=== PATIENT | male | born 1965 | race Hispanic/Latino ===

== ENCOUNTER 2017-05-29 19:13 | Observation (INO) | payer MEDICAID, OTHER ==
[2017-05-29 19:20] VITALS: BMI 31.4
--- NOTE | 2017-05-29 19:34 | ED PDOC ---
Arrival/HPI - General Historian: Patient, Spouse - History of Present Illness Time/Duration: Prior to Arrival Symptom Onset: Sudden Symptom Course: Improving Quality: Pressure <Emil Lezama - Last Filed: 05/29/17 21:04> <David Drake - Last Filed: 05/29/17 21:49> - General Chief Complaint: Chest Pain Time Seen by Provider: 05/29/17 19:14 - History of Present Illness Narrative History of Present Illness (Text): 05/29/17 19:30 This is a 52 year old male with PMHx newly diagnosed HTN, cardiomegaly, BPH who presents complaining of chest pain. Patient states that this began at around 6: 45 PM after dinner. Patient states that it feels as if someone is sitting on his chest. There is no radiation of pain but patient complains of numbness along the left medial arm. Patient states that at the time he experienced associated dizziness, palpitations, headache, SOB. Patient states that these symptoms have since improved. PMHx: HTN, BPH, Cardiomegaly, Pneumonia PSHx: Right arm fracture repair and surgery for glass in his right eye. Tonsillectomy. Allergies: NKDA Social: Denies tobacco, alcohol, drugs. PMD: Dr. Lowe [employer] Curer: Dr. Osorio (Emil Lezama) Past Medical History - Provider Review Nursing Documentation Reviewed: Yes - Cardiac Hx Hypertension: Yes - Psychiatric Hx Substance Use: No <Emil Lezama - Last Filed: 05/29/17 21:04> Family/Social History - Physician Review Nursing Documentation Reviewed: Yes Family/Social History: CAD/ID Smoking Status: n Hx Alcohol Use: No Hx Substance Use: No <Emil Lezama - Last Filed: 05/29/17 21:04> Allergies/Home Meds <Emil Lezama - Last Filed: 05/29/17 21:04> <David Drake - Last Filed: 05/29/17 21:49> Allergies/Adverse Reactions: Allergies No Known Allergies Allergy (Verified 05/29/17 19:24) Home Medications: Home Meds Medication Instructions Recorded Confirmed Losartan/Hydrochlorothiazide 1 tab PO DAILY 05/29/17 05/29/17 [Hyzaar 12.5 mg-100 mg] Review of Systems - Review of Systems Constitutional: Normal Eyes: Normal ENT: Normal Respiratory: SOB Cardiovascular: Chest Pain, Palpitations Gastrointestinal: Normal Genitourinary Male: Normal Musculoskeletal: Normal Skin: Normal Neurological: Headache, Dizziness Endocrine: Normal Hemo/Lymphatic: Normal Psychiatric: Normal <Emil Lezama - Last Filed: 05/29/17 21:04> Physical Exam Vital Signs Reviewed: Yes Temperature: Afebrile Blood Pressure: Hypertensive Pulse: Regular Respiratory Rate: Normal Appearance: Positive for: Comfortable Pain Distress: Mild Mental Status: Positive for: Alert and Oriented X 3 - Systems Exam Head: Present: Atraumatic, Normocephalic Pupils: Present: PERRL Extroacular Muscles: Present: EOMI Conjunctiva: Present: Normal Mouth: Present: Moist Mucous Membranes Neck: Present: Normal Range of Motion Respiratory/Chest: Present: Clear to Auscultation, Good Air Exchange. No: Accessory Muscle Use Cardiovascular: Present: Regular Rate and Rhythm, Normal S1, S2 Abdomen: Present: Normal Bowel Sounds. No: Tenderness, Distention Upper Extremity: Present: Normal Inspection, NORMAL PULSES Lower Extremity: Present: Normal Inspection, NORMAL PULSES. No: CALF TENDERNESS Neurological: Present: GCS=15, CN II-XII Intact Skin: Present: Warm, Dry, Normal Color. No: Rashes Psychiatric: Present: Alert, Oriented x 3 <Emil Lezama - Last Filed: 05/29/17 21:04> Medical Decision Making - Lab Interpretations I have reviewed the lab results: Yes - EKG Interpretation Interpreted by ED Physician: Yes Type: 12 lead EKG <Emil Lezama - Last Filed: 05/29/17 21:04> - Lab Interpretations I have reviewed the lab results: Yes - EKG Interpretation Interpreted by ED Physician: Yes Type: 12 lead EKG <David Drake - Last Filed: 05/29/17 21:49> ED Course and Treatment: 05/29/17 19:36 EKG, Cardiac Iso, CBC, CMP, Coags, Mag, Phos, Portable CXR EKG shows NSR at rate 78 but prolonged QTc at 481 ms 05/29/17 21:[address] Romero at 21:00 who agreed for admission for observation telemetry. (Emil Lezama) Impression: Pt seen and evaluated with medical secretary. Pt, whose past medical history includes hypertension, cardiomegaly, and BPH, presented for chest pain with associated dizziness, palpitations, headaches, and shortness of breath. Aware and agrees with HPI, clinical findings, plan, and management. Plan: -- EKG -- Chest X-ray -- Labs, cardiac enzymes -- Aspirin -- Reassess and disposition (David Drake) - Lab Interpretations Lab Results: 05/29/17 19:41 05/29/17 19:41 Lab Results 05/29/17 20:10: PT 12.1 H, INR 1.12 H, APTT 29.3 05/29/17 19:41: Sodium 141, Potassium 3.8, Chloride 101, Carbon Dioxide 29, Anion Gap 15, BUN 17, Creatinine 0.9, Est GFR ( Amer) > 60, Est GFR (Non- Af Amer) > 60, Random Glucose 95, Calcium 9.0, Phosphorus 3.4, Magnesium 2.1, Total Bilirubin 0.8, AST 26, ALT 49, Alkaline Phosphatase 72, Lactate Dehydrogenase 380, Total Creatine Kinase 94, Troponin I < 0.01, Total Protein 7.8, Albumin 4.6, Globulin 3.3, Albumin/Globulin Ratio 1.4 05/29/17 19:41: WBC 5.1, RBC 4.54, Hgb 14.1, Hct 40.7 L, MCV 89.6, MCH 31.1, MCHC 34.6, RDW 12.7, Plt Count 211, MPV 9.5, Gran % 51.2, Lymph % (Auto) 36.2 H , Bartholomew % (Auto) 6.5 H, Eos % (Auto) 5.5 H, Baso % (Auto) 0.6, Gran # 2.60, Lymph # 1.8, [place]w # 0.3, Eos # 0.3, Baso # 0.03 - RAD Interpretation Radiology Orders: 05/29/17 19:29 CXR [CHEST PORTABLE] [RAD] Stat - Medication Orders Current Medication Orders: Discontinued Medications Aspirin (Aspirin) 325 mg PO STAT STA Stop: 05/29/17 19:31 Last Admin: 05/29/17 19:48 Dose: 325 mg Disposition/Present on Arrival - Present on Arrival Any Indicators Present on Arrival: No History of DVT/PE: No History of Uncontrolled Diabetes: No Urinary Catheter: No History of Decub. Ulcer: No History Surgical Site Infection Following: None - Disposition Have Diagnosis and Disposition been Completed?: Yes Disposition Time: 21:00 Patient Plan: Observation, Telemetry <Emil Lezama - Last Filed: 05/29/17 21:04> <David Drake - Last Filed: 05/29/17 21:49> - Disposition Diagnosis: Chest pain Disposition: HOSPITALIZED Patient Problems: Current Active Problems Problem Status Onset Chest pain Acute Condition: STABLE
[2017-05-29 19:56] LABS: BASO # 0.03 K/mm3 (0.0-2.0); BASO % 0.6 % (0.0-3.0); EOS # 0.3 (0.0-0.7); EOS % 5.5 % (1.5-5.0); GRAN # 2.6 (1.4-6.5); GRAN % 51.2 % (50.0-68.0); HEMATOCRIT 40.7 % (42.0-52.0); LYMPH # 1.8 (1.2-3.4); LYMPH % 36.2 % (22.0-35.0); MEAN CELL VOLUME 89.6 fl (80.0-105.0); MEAN CORPUSCULAR HEMOGLOBIN 31.1 pg (25.0-35.0); MEAN CORPUSCULAR HGB CONC 34.6 g/dl (31.0-37.0); MEAN PLATELET VOLUME 9.5 fl (7.0-11.0); MONO # 0.3 (0.1-0.6); MONO % 6.5 % (1.0-6.0); RED CELL DISTRIBUTION WIDTH 12.7 % (11.5-14.5); WHITE BLOOD COUNT 5.1 10^3/ul (4.5-11.0)
[2017-05-29 20:07] LABS: ALB/GLOB RATIO 1.4 (1.1-1.8); ALKALINE PHOSPHATASE 72 U/L (38-126); ALT/SGPT 49 U/L (7-56); AST/SGOT 26 U/L (17-59); BILIRUBIN,TOTAL 0.8 mg/dL (0.2-1.3); BLOOD UREA NITROGEN 17 mg/dL (7-21); CARBON DIOXIDE 29 mmol/L (21-33); CHLORIDE 101 mmol/L (98-107); GFR AFRICAN-AMERICAN > 60; GLUCOSE,RANDOM 95 mg/dL (70-110); MAGNESIUM 2.1 mg/dL (1.7-2.2); PHOSPHOROUS 3.4 mg/dL (2.5-4.5); POTASSIUM 3.8 mmol/L (3.6-5.0); SODIUM 141 mmol/L (132-148); TOTAL PROTEIN 7.8 g/dL (5.8-8.3)
[2017-05-29 20:08] LABS: INR 1.12 (0.93-1.08); PARTIAL THROMBOPLASTIN TIME 29.3 Seconds (23.7-30.8)
[2017-05-29 20:22] LABS: TROPONIN I < 0.01 ng/mL
--- NOTE | 2017-05-30 01:26 | CP.PCM.HP ---
<DOROTA GUERRERO - Last Filed: 05/30/17 01:38> History of Present Illness - History of Present Illness History of Present Illness: Dorota Guerrero DO PGY1 - Internal Medicine H&P CC: Chest pain HPI: 52 yo M with PMH of HTN and BPH presents complaining of CP. Pain started earlier today while sitting at home, a few minutes after eating dinner. Pain was squeezing and pressure-like in character. Pain was worsened by walking, and improved by lying down. He did not try anything for the pain. He has not had this pain before. Pain did not radiate. It was associated with SOB, diaphoresis , headache, and nausea. He came to the ER with his . Pain and SOB have been gradually improving, and currently he denies any CP or SOB. He also denies N/V, F/C, recent illness, recent travel, cough, abdominal pain. He does admit to a mild left sided temporal headache. PMH: HTN, BPH PSH: R arm ORIF, tonsillectomy FHx: Fatal [place] in father age 64, HTN mother, CVA with cerebral aneurysm in brother age 61 Meds: See MAR Soc: Tob denies; EtOH drinks a quart of rum 1-2 times weekly, last drink one week ago; Illicits denies All: NKDA PMD: Dr. Lowe Cardio: Dr. Osorio ROS: Constitutional: pt denies fever, chills, generalized weakness ENT: pt denies dysphagia, otalgia, hearing deficit, rhinorrhea Eyes: pt denies sudden loss of vision, diplopia, blurred vision MSK: pt denies muscle stiffness, joint pain, extremity cramping Cardio: +CP, SOB (now resolved) pt denies heart murmur Pulm: pt denies cough, hemoptysis, wheeze GI: pt denies loss of appetite, abdominal pain, constipation, melena, n/v/d : pt denies burning on urination, urinary frequency, hematuria, urinary urgency Neuro: +MENEZES pt denies paresis, paresthesia, dizziness, numbness, tingling Derm: pt denies skin changes, lesions, nail changes Endo: pt denies intolerance to heat/cold, diaphoresis, night sweats, polydipsia Psych: pt denies anxiety, depression, mood changes Present on Admission - Present on Admission Any Indicators Present on Admission: No Past Patient History - Past Social History Smoking Status: Never Smoked - CARDIAC Hx Cardiac Disorders: Yes Hx Hypertension: Yes Other/Comment: Cardiomegaly - PULMONARY Hx Respiratory Disorders: No - NEUROLOGICAL Hx Neurological Disorder: No - HEENT Hx HEENT Problems: No - RENAL Hx Chronic Kidney Disease: No - ENDOCRINE/METABOLIC Hx Endocrine Disorders: No - HEMATOLOGICAL/ONCOLOGICAL Hx Blood Disorders: No - INTEGUMENTARY Hx Dermatological Problems: No - MUSCULOSKELETAL/RHEUMATOLOGICAL Hx Musculoskeletal Disorders: No Hx Falls: No - GASTROINTESTINAL Hx Gastrointestinal Disorders: No - GENITOURINARY/GYNECOLOGICAL Hx Genitourinary Disorders: Yes Hx Prostate Problems: Yes (BPH) - PSYCHIATRIC Hx Psychophysiologic Disorder: No Hx Substance Use: No - SURGICAL HISTORY Hx Surgeries: No Meds Allergies/Adverse Reactions: Allergies Allergy/AdvReac Type Severity Reaction Status Date / Time No Known Allergies Allergy Verified 05/29/17 19:24 Physical Exam - Constitutional Appears: Non-toxic, No Acute Distress - Head Exam Head Exam: ATRAUMATIC, NORMOCEPHALIC Additional comments: No superficial temporal tenderness - Eye Exam Eye Exam: Conjunctival injection, EOMI, PERRL - ENT Exam ENT Exam: Mucous Membranes Moist - Neck Exam Neck exam: Negative for: Lymphadenopathy, Meningismus - Respiratory Exam Respiratory Exam: Clear to Auscultation Bilateral, NORMAL BREATHING PATTERN. absent: Rales, Rhonchi, Wheezes - Cardiovascular Exam Cardiovascular Exam: RRR, +S1, +S2. absent: Tachycardia - GI/Abdominal Exam GI & Abdominal Exam: Normal Bowel Sounds, Soft. absent: Tenderness - Extremities Exam Extremities exam: Negative for: calf tenderness, pedal edema - Neurological Exam Neurological exam: Alert, CN II-XII Intact, Oriented x3 - Psychiatric Exam Psychiatric exam: Normal Affect, Normal Mood - Skin Skin Exam: Dry, Intact Results - Vital Signs Recent Vital Signs: Last Vital Signs Temp 97.8 F 05/29/17 23:51 Pulse 57 L 05/29/17 23:51 Resp 20 05/29/17 23:51 BP 125/80 05/29/17 23:51 Pulse Ox 97 05/29/17 23:51 - Labs Result Diagrams: 05/29/17 19:41 05/29/17 19:41 Assessment & Plan - Assessment and Plan (Free Text) Assessment: 52 yo M with PMH of HTN and BPH presents for CP concerning for ACS, now improved Plan: Chest pain, r/o ACS - Patient received 325mg ASA in ER, CP now resolved - CXR in ER shows no active disease; pending official read - EKG in ER shows Normal sinus rhythm, Left axis deviation, Prolonged QT, but no ST-T wave abnormalities; pending official read - Trop negative x1, continue to trend - Repeat EKG in AM - Patient previously had myocardial perfusion scan/exercise stress test on which showed LVEF 64%, normal LV systolic func, good exercise tolerance - Lipid panel ordered with AM labs - Start ASA 81mg daily - Transferred to telemetry for observation h/o HTN - Continue home meds h/o Alcohol abuse - Alcohol level <10 in ER - No transaminitis, very mildly elevated INR - Monitor for signs of withdrawal - Discussed cessation GI/DVT Ppx Patient seen, discussed, and reviewed with attending <John Romero - Last Filed: 05/30/17 06:26> Results - Vital Signs Recent Vital Signs: Last Vital Signs Temp 97.9 F 05/30/17 06:00 Pulse 58 L 05/30/17 06:00 Resp 20 05/30/17 06:00 BP 104/62 05/30/17 06:00 Pulse Ox 97 05/30/17 06:00 - Labs Result Diagrams: 05/29/17 19:41 05/29/17 19:41 Labs: Laboratory Results - last 24 hr 05/30/17 02:01 Troponin I < 0.01 Attending/Attestation - Attestation I have personally seen and examined this patient.: Yes I have fully participated in the care of the patient.: Yes I have reviewed all pertinent clinical information: Yes Notes (Text): 05/30/17 06:25 Patient was seen when he was in the ER. Agree with history , physical examination, assessment and plan.
[2017-05-30] MEDS: Pantoprazole 40 mg EC Tab PO SCH (05:07)
[2017-05-30 06:28] LABS: BASO # 0.03 K/mm3 (0.0-2.0); BASO % 0.7 % (0.0-3.0); EOS # 0.4 (0.0-0.7); EOS % 8.2 % (1.5-5.0); GRAN # 1.59 (1.4-6.5); GRAN % 35.4 % (50.0-68.0); HEMATOCRIT 40.4 % (42.0-52.0); LYMPH # 2.2 (1.2-3.4); LYMPH % 49.9 % (22.0-35.0); MEAN CORPUSCULAR HEMOGLOBIN 30.7 pg (25.0-35.0); MEAN CORPUSCULAR HGB CONC 34.2 g/dl (31.0-37.0); MEAN PLATELET VOLUME 9.6 fl (7.0-11.0); MONO # 0.3 (0.1-0.6); MONO % 5.8 % (1.0-6.0); WHITE BLOOD COUNT 4.5 10^3/ul (4.5-11.0)
[2017-05-30 07:03] LABS: ALB/GLOB RATIO 1.2 (1.1-1.8); ALKALINE PHOSPHATASE 68 U/L (38-126); ALT/SGPT 45 U/L (7-56); AST/SGOT 25 U/L (17-59); BILIRUBIN,TOTAL 0.7 mg/dL (0.2-1.3); BLOOD UREA NITROGEN 17 mg/dL (7-21); CALCIUM 8.7 mg/dL (8.4-10.5); CARBON DIOXIDE 29 mmol/L (21-33); CHLORIDE 102 mmol/L (95-110); CHOLESTEROL 123 mg/dL (130-200); GFR AFRICAN-AMERICAN > 60; GLUCOSE,RANDOM 106 mg/dL (70-110); PHOSPHOROUS 4.3 mg/dL (2.5-4.5); POTASSIUM 3.5 mmol/L (3.6-5.0); SODIUM 140 mmol/L (132-148); TOTAL PROTEIN 7.4 g/dL (5.8-8.3)
--- NOTE | 2017-05-30 07:44 | RAD ---
HISTORY: chest pain COMPARISON: No prior. FINDINGS: LUNGS: No active pulmonary disease. PLEURA: No significant pleural effusion identified, no pneumothorax apparent. CARDIOVASCULAR: Normal. OSSEOUS STRUCTURES: No significant abnormalities. VISUALIZED UPPER ABDOMEN: Normal. OTHER FINDINGS: None. IMPRESSION: No acute cardiopulmonary disease appreciated.
[2017-05-30] MEDS ORDERED: Potassium Chloride 20 mEq ER Tab PO STA (08:08)
--- NOTE | 2017-05-30 08:42 | CARD ---
APPROVED REPORT EKG Measurement Heart [id number] [place] [id number] <Conclusion> Normal sinus rhythm Left axis deviation Abnormal ECG
[2017-05-30] MEDS ORDERED: LOSARTAN PO SCH (10:00)
[2017-05-30] MEDS ORDERED: HYDROCHLOROTHIAZIDE PO SCH (10:00)
--- NOTE | 2017-05-30 10:42 | CARD ---
APPROVED REPORT EKG Measurement Heart [id number] [place] 182P30 [id number] <Conclusion> Sinus bradycardia Otherwise normal ECG
--- NOTE | 2017-05-30 17:16 | CON ---
DATE: 05/30/2017 CARDIOLOGY CONSULTATION HISTORY OF PRESENT ILLNESS: The patient is a 52-year-old male who presents with classic anginal symptoms at rest. The patient's past medical history includes a stress test that was done 1 year ago which was unremarkable. His cardiac risk factors include hypertension, hypercholesterolemia as well as a strong family history for CAD. His father had a myocardial infarction at an early age as well as brother who had a cardiovascular event. SOCIAL HISTORY: Denies smoking. REVIEW OF SYSTEMS: Denies shortness of breath and negative edema. Negative history of peptic ulcer disease. No new symptoms other than his anginal symptoms on presentation. PHYSICAL EXAMINATION: VITAL SIGNS: Blood pressure 104/62, the heart rate is 58. NECK: Negative JVD. LUNGS: Without rales. HEART: S1, S2. EXTREMITIES: Without edema. Laboratories includes EKG that shows no acute changes. Troponins are negative x2. The hemoglobin is 13.6. Chemistries, BUN and creatinine unremarkable. IMPRESSION: 1. Classic angina. 2. Increased risk for coronary disease with a strong family history for coronary artery disease, hypertension and hypercholesterolemia. Given these findings, I have discussed with the patient and his about the alternatives of repeating a stress test versus cardiac catheterization, especially given his strong family history for CAD. They opt for a catheterization. The patient is scheduled for the morning. We will add Plavix to his regimen in preparation. Berhane Fleming MD
[2017-05-31] MEDS: Pantoprazole 40 mg EC Tab PO SCH (05:31)
[2017-05-31 06:35] VITALS: O2SAT 94
[2017-05-31] MEDS ORDERED: Lidocaine 2% Inj (20ml) ONE (06:45)
[2017-05-31] MEDS ORDERED: Iohexol 350mgl/ml 50 ML ONE (06:46)
[2017-05-31] MEDS ORDERED: Iohexol 350 MG/100 ML VIAL ONE (06:46)
[2017-05-31] MEDS ORDERED: Phenylephrine 10 mg/ml Inj ONE (06:48)
[2017-05-31] MEDS ORDERED: Midazolam 2 MG/2 ML VIAL ONE ×2 (07:45→07:50)
[2017-05-31] MEDS ORDERED: Sodium Chloride 0.9% 1,000 ML IV SCH (08:30)
[2017-05-31 10:17] LABS: ALB/GLOB RATIO 1.2 (1.1-1.8); ALKALINE PHOSPHATASE 65 U/L (38-126); ALT/SGPT 43 U/L (7-56); AST/SGOT 30 U/L (17-59); BILIRUBIN,TOTAL 0.8 mg/dL (0.2-1.3); BLOOD UREA NITROGEN 14 mg/dL (7-21); CALCIUM 8.9 mg/dL (8.4-10.5); CARBON DIOXIDE 29 mmol/L (21-33); CHLORIDE 103 mmol/L (98-107); GFR AFRICAN-AMERICAN > 60; GLUCOSE,RANDOM 94 mg/dL (70-110); POTASSIUM 4.1 mmol/L (3.6-5.0); SODIUM 141 mmol/L (132-148); TOTAL PROTEIN 7.3 g/dL (5.8-8.3)
[2017-05-31 10:39] LABS: HEMATOCRIT 40.3 % (42.0-52.0); MEAN CELL VOLUME 89.4 fl (80.0-105.0); MEAN CORPUSCULAR HGB CONC 34.7 g/dl (31.0-37.0); MEAN PLATELET VOLUME 9.8 fl (7.0-11.0); RED CELL DISTRIBUTION WIDTH 12.7 % (11.5-14.5); WHITE BLOOD COUNT 3.9 10^3/ul (4.5-11.0)
[2017-05-31 11:55] VITALS: BP 109/66; RESP 18; TEMP 97
--- NOTE | 2017-05-31 13:22 | CARDCATH ---
PROCEDURE DATE: 05/31/2017 HISTORY: The patient is a 52-year-old male who presents with classic angina described as pressure-like sensation over the chest. Troponins were negative. The patient's main cardiac risks include a very strong family history for CAD and myocardial infarction and cardiovascular events in his family, both brother and father. Because of this and his symptoms at rest, cardiac catheterization was recommended. PROCEDURES: Left heart catheterization with coronary angiography and left ventriculogram. The right femoral artery was cannulated with a 6-[place] sheath. There were no complications. The findings on catheterization revealed a left ventricle that contracted normally. Estimated ejection fraction of 60%. His coronary anatomy revealed a left main artery that was unremarkable. The LAD revealed mild intimal irregularities without significant stenoses. The diagonal vessel was unremarkable. The circumflex artery and obtuse marginal branches were free of significant disease. The RCA was selectively cannulized and found to be a dominant vessel. The RCA was within normal limits. Angio-Seal was used to close the femoral artery site. The patient tolerated the procedure well. In summary, the procedure revealed a nonobstructive CAD with mild intimal irregularities in its coronary tree. LV function is normal. Given these findings, the patient can be discharged today after recovery. I have discussed with the patient and the patient's family about the need for cardiac risk reduction program. Berhane Fleming MD
[2017-05-31 15:31] VITALS: PULSE 72
--- NOTE | 2017-05-31 17:22 | CP.PCM.DIS ---
<WilbertohernandezKateryna - Last Filed: 05/31/17 22:13> Provider - Provider Date of Admission: 05/29/17 21:00 Attending physician: Brandon Holley MD Primary care physician: Binh Lowe MD Consults: Devaughn - Fleming Time Spent in preparation of Discharge (in minutes): 40 Diagnosis - Discharge Diagnosis (1) Chest pain Status: Resolved Hospital Course - Lab Results Lab Results: Most Recent Lab Values WBC 3.9 10^3/ul (4.5-11.0) L 05/31/17 10:03 RBC 4.51 10^6/uL (3.5-6.1) 05/31/17 10:03 Hgb 14.0 g/dL (14.0-18.0) 05/31/17 10:03 Hct 40.3 % (42.0-52.0) L 05/31/17 10:03 MCV 89.4 fl (80.0-105.0) 05/31/17 10:03 MCH 31.0 pg (25.0-35.0) 05/31/17 10:03 MCHC 34.7 g/dl (31.0-37.0) 05/31/17 10:03 RDW 12.7 % (11.5-14.5) 05/31/17 10:03 Plt Count 191 10^3/uL (120.0-450.0) 05/31/17 10:03 MPV 9.8 fl (7.0-11.0) 05/31/17 10:03 Gran % 35.4 % (50.0-68.0) L 05/30/17 06:00 Lymph % (Auto) 49.9 % (22.0-35.0) H 05/30/17 06:00 [place] % (Auto) 5.8 % (1.0-6.0) 05/30/17 06:00 Eos % (Auto) 8.2 % (1.5-5.0) H 05/30/17 06:00 Baso % (Auto) 0.7 % (0.0-3.0) 05/30/17 06:00 Gran # 1.59 (1.4-6.5) 05/30/17 06:00 Lymph # 2.2 (1.2-3.4) 05/30/17 06:00 [place] # 0.3 (0.1-0.6) 05/30/17 06:00 Eos # 0.4 (0.0-0.7) 05/30/17 06:00 Baso # 0.03 K/mm3 (0.0-2.0) 05/30/17 06:00 PT 12.1 Seconds (9.9-11.8) H 05/29/17 20:10 INR 1.12 (0.93-1.08) H 05/29/17 20:10 APTT 29.3 Seconds (23.7-30.8) 05/29/17 20:10 Sodium 141 mmol/L (132-148) 05/31/17 10:03 Potassium 4.1 mmol/L (3.6-5.0) 05/31/17 10:03 Chloride 103 mmol/L (98-107) 05/31/17 10:03 Carbon Dioxide 29 mmol/L (21-33) 05/31/17 10:03 Anion Gap 13 (10-20) 05/31/17 10:03 BUN 14 mg/dL (7-21) 05/31/17 10:03 Creatinine 0.9 mg/dL (0.5-1.4) 05/31/17 10:03 Est GFR ( Amer) > 60 05/31/17 10:03 Est GFR (Non-Af Amer) > 60 05/31/17 10:03 Random Glucose 94 mg/dL (70-110) 05/31/17 10:03 Calcium 8.9 mg/dL (8.4-10.5) 05/31/17 10:03 Phosphorus 4.3 mg/dL (2.5-4.5) 05/30/17 06:00 Magnesium 2.0 mg/dL (1.7-2.2) 05/30/17 06:00 Total Bilirubin 0.8 mg/dL (0.2-1.3) 05/31/17 10:03 AST 30 U/L (17-59) 05/31/17 10:03 ALT 43 U/L (7-56) 05/31/17 10:03 Alkaline Phosphatase 65 U/L (38-126) 05/31/17 10:03 Lactate Dehydrogenase 380 U/L (333-699) 05/29/17 19:41 Total Creatine Kinase 94 U/L (35-230) 05/29/17 19:41 Troponin I < 0.01 ng/mL 05/30/17 08:00 Total Protein 7.3 g/dL (5.8-8.3) 05/31/17 10:03 Albumin 4.1 g/dL (3.0-4.8) 05/31/17 10:03 Globulin 3.3 gm/dL 05/31/17 10:03 Albumin/Globulin Ratio 1.2 (1.1-1.8) 05/31/17 10:03 Triglycerides 107 mg/dL (35-160) 05/30/17 06:00 Cholesterol 123 mg/dL (130-200) L 05/30/17 06:00 LDL Cholesterol Direct 70 mg/dL (0-129) 05/30/17 06:00 HDL Cholesterol 32 mg/dL (29-60) 05/30/17 06:00 Alcohol, Quantitative < 10 mg/dL (0-10) 05/29/17 19:41 - Hospital Course Hospital Course: Pt is a 52 yo M with PMH of HTN and BPH who presented with an episode of chest pain that began earlier that day, described as nonradiating, squeezing, and pressure-like, "like someone sitting on my chest", that began while he was sitting, a few minutes after finishing dinner. Pt reported that the pain was worse with exertion and improved with resting, associated with SOB, diaphoresis , headache, and nausea.~ Chest pain and SOB had resolved by the time the pt arrived to the hospital.~ Pt was given ASA, had EKG and CXR that were WNL, cardiology was consulted, and he was admitted for chest pain r/o ACS. During his admission, patient denied return of chest pain.~ Troponins x 3 were negative.~ He had a cardiac catheterization done which showed non-obstructive CAD with mild intimal irregularaties, and he was cleared by his interventional tech for discharge home.~ At the time of discharge, patient reported no chest pain, dyspnea, diaphoresis, N/V/D, headache, neck pain, or other complaints. He is to follow up with interventional tech and PMD within 1 week. - Date & Time of H&P Date of H&P: 05/31/17 Time of H&P: 04:00 Discharge Exam - Head Exam Head Exam: ATRAUMATIC, NORMOCEPHALIC - Eye Exam Eye Exam: EOMI, Normal appearance - ENT Exam ENT Exam: Mucous Membranes Moist - Respiratory Exam Respiratory Exam: Clear to PA & Lateral - Cardiovascular Exam Cardiovascular Exam: +S1, +S2. absent: RRR - GI/Abdominal Exam GI & Abdominal Exam: Normal Bowel Sounds, Soft. absent: Tenderness - Exam External exam: Erythema - Extremities Exam Additional comments: no pedal edema - Neurological Exam Neurological exam: Alert, Oriented x3 - Psychiatric Exam Psychiatric exam: Normal Affect, Normal Mood Discharge Plan - Follow Up Plan Condition: STABLE Disposition: HOME/ ROUTINE Instructions: Chest Pain (DC), Chest Pain (GEN), Left Heart Catheterization (DC ) Additional Instructions: Please follow up with your primary physician within 1 week Return to the ER if symptoms return or exacerbate. Follow up with own interventional tech Dr Osorio Referrals: Binh Lowe MD [Primary Care Provider] - <Margret LYNCH,[facility] - Last Filed: 06/03/17 16:58> Provider - Provider Date of Admission: 05/29/17 21:00 Attending physician: Brandon Holley MD Primary care physician: Binh Lowe MD Hospital Course - Lab Results Lab Results: Most Recent Lab Values WBC 3.9 10^3/ul (4.5-11.0) L 05/31/17 10:03 RBC 4.51 10^6/uL (3.5-6.1) 05/31/17 10:03 Hgb 14.0 g/dL (14.0-18.0) 05/31/17 10:03 Hct 40.3 % (42.0-52.0) L 05/31/17 10:03 MCV 89.4 fl (80.0-105.0) 05/31/17 10:03 MCH 31.0 pg (25.0-35.0) 05/31/17 10:03 MCHC 34.7 g/dl (31.0-37.0) 05/31/17 10:03 RDW 12.7 % (11.5-14.5) 05/31/17 10:03 Plt Count 191 10^3/uL (120.0-450.0) 05/31/17 10:03 MPV 9.8 fl (7.0-11.0) 05/31/17 10:03 Gran % 35.4 % (50.0-68.0) L 05/30/17 06:00 Lymph % (Auto) 49.9 % (22.0-35.0) H 05/30/17 06:00 [place] % (Auto) 5.8 % (1.0-6.0) 05/30/17 06:00 Eos % (Auto) 8.2 % (1.5-5.0) H 05/30/17 06:00 Baso % (Auto) 0.7 % (0.0-3.0) 05/30/17 06:00 Gran # 1.59 (1.4-6.5) 05/30/17 06:00 Lymph # 2.2 (1.2-3.4) 05/30/17 06:00 [place] # 0.3 (0.1-0.6) 05/30/17 06:00 Eos # 0.4 (0.0-0.7) 05/30/17 06:00 Baso # 0.03 K/mm3 (0.0-2.0) 05/30/17 06:00 PT 12.1 Seconds (9.9-11.8) H 05/29/17 20:10 INR 1.12 (0.93-1.08) H 05/29/17 20:10 APTT 29.3 Seconds (23.7-30.8) 05/29/17 20:10 Sodium 141 mmol/L (132-148) 05/31/17 10:03 Potassium 4.1 mmol/L (3.6-5.0) 05/31/17 10:03 Chloride 103 mmol/L (98-107) 05/31/17 10:03 Carbon Dioxide 29 mmol/L (21-33) 05/31/17 10:03 Anion Gap 13 (10-20) 05/31/17 10:03 BUN 14 mg/dL (7-21) 05/31/17 10:03 Creatinine 0.9 mg/dL (0.5-1.4) 05/31/17 10:03 Est GFR ( Amer) > 60 05/31/17 10:03 Est GFR (Non-Af Amer) > 60 05/31/17 10:03 Random Glucose 94 mg/dL (70-110) 05/31/17 10:03 Calcium 8.9 mg/dL (8.4-10.5) 05/31/17 10:03 Phosphorus 4.3 mg/dL (2.5-4.5) 05/30/17 06:00 Magnesium 2.0 mg/dL (1.7-2.2) 05/30/17 06:00 Total Bilirubin 0.8 mg/dL (0.2-1.3) 05/31/17 10:03 AST 30 U/L (17-59) 05/31/17 10:03 ALT 43 U/L (7-56) 05/31/17 10:03 Alkaline Phosphatase 65 U/L (38-126) 05/31/17 10:03 Lactate Dehydrogenase 380 U/L (333-699) 05/29/17 19:41 Total Creatine Kinase 94 U/L (35-230) 05/29/17 19:41 Troponin I < 0.01 ng/mL 05/30/17 08:00 Total Protein 7.3 g/dL (5.8-8.3) 05/31/17 10:03 Albumin 4.1 g/dL (3.0-4.8) 05/31/17 10:03 Globulin 3.3 gm/dL 05/31/17 10:03 Albumin/Globulin Ratio 1.2 (1.1-1.8) 05/31/17 10:03 Triglycerides 107 mg/dL (35-160) 05/30/17 06:00 Cholesterol 123 mg/dL (130-200) L 05/30/17 06:00 LDL Cholesterol Direct 70 mg/dL (0-129) 05/30/17 06:00 HDL Cholesterol 32 mg/dL (29-60) 05/30/17 06:00 Alcohol, Quantitative < 10 mg/dL (0-10) 05/29/17 19:41 Attending/Attestation - Attestation I have personally seen and examined this patient.: Yes I have fully participated in the care of the patient.: Yes I have reviewed all pertinent clinical information, including history, physical exam and plan: Yes Notes (Text): 06/03/17 16:56 Patient was seen and examined with medical physicist. Agreed with resident assessment and plan. 52 Yrs old male with PMH of HTN was admitted with chest pain, EKG is negative for acute ischemic changes, serial troponins were normal. Patient underwent cardiac catherization today that reveals non obstructive coronaries.Patient will be discharged home and will follow up with PCP and cardiology. Management plan was discussed in detail with patient Education was provided.
== END 2017-05-31 18:37 | disposition home or self-care (01) ==
LOC: ED 19:13 → ERH 21:00 → 2RNO 22:38 → 2RSO 05-31 02:04
PROVIDERS: ADMIT Internal Medicine; ATTEND Internal Medicine
DX: I25.119 Atherosclerotic heart disease of native coronary artery with unspecified angina pectoris (principal); Z82.49 Family history of ischemic heart disease and other diseases of the circulatory system; N40.0 Benign prostatic hyperplasia without lower urinary tract symptoms; I11.9 Hypertensive heart disease without heart failure; Z82.3 Family history of stroke
CPT/HCPCS: 36415; 71010; 80053; 80061; 80320; 82550; 83615; 83735; 84100; 84484; 85025; 85027; 85610; 85730; 93005; 93458; 99152; 99285; C1760; C1769; C2629; G0378; J1644; J2250; J3010; J7040; Q9967

== ENCOUNTER 2017-10-30 21:20 | Emergency (ER) | payer MEDICAID, OTHER ==
[2017-10-30 21:30] VITALS: BMI 33.7
[2017-10-30 21:34] VITALS: RESP 18; TEMP 98.1
--- NOTE | 2017-10-30 22:13 | ED PDOC ---
Arrival/HPI - General Chief Complaint: Headache Time Seen by Provider: 10/30/17 21:41 Historian: Patient EM Caveat: Acuity of Condition - History of Present Illness Narrative History of Present Illness (Text): 10/30/17 22:08 Pt is a 52 yo male who presents to the ER for left side head and neck pain for the past 4 days. Pt states that it is a constant ache along the back of the neck and head but does not refer down to the shoulder. He reports that he cannot sleep or eat because the pain is so bad. The pain started when he awoke 4 days ago and continued thereafter. He admits that he recently started working out with weights again focusing on upper body but never strained himself or felt he was lifting too much. Denies chest pain, sob, n/v/d back pain, fever, chills, sick contacts. Time/Duration: < week Symptom Onset: Gradual Symptom Course: Unchanged Quality: Aching, Pressure, Tightness, Stabbing Severity Level: Moderate Activities at Onset: Light, Sleeping Context: Work Past Medical History - Provider Review Nursing Documentation Reviewed: Yes - Travel History Have you recently traveled outside [place] w/in the past 3 mons?: No - Infectious Disease Hx of Infectious Diseases: None - Cardiac Hx Cardiac Disorders: Yes Hx Hypertension: Yes Other/Comment: Cardiomegaly - Pulmonary Hx Respiratory Disorders: No - Neurological Hx Neurological Disorder: No - HEENT Hx HEENT Disorder: No - Renal Hx Renal Disorder: No - Endocrine/Metabolic Hx Endocrine Disorders: No - Hematological/Oncological Hx Blood Disorders: No - Integumentary Hx Dermatological Disorder: No - Musculoskeletal/Rheumatological Hx Musculoskeletal Disorders: No - Gastrointestinal Hx Gastrointestinal Disorders: No - Genitourinary/Gynecological Hx Genitourinary Disorders: Yes Hx Prostate Problems: Yes (BPH) - Psychiatric Hx Psychophysiologic Disorder: No Hx Substance Use: No Family/Social History - Physician Review Nursing Documentation Reviewed: Yes Family/Social History: Unknown Family HX Smoking Status: Never Smoked Hx Alcohol Use: No Hx Substance Use: No Allergies/Home Meds Allergies/Adverse Reactions: Allergies No Known Allergies Allergy (Verified 05/29/17 19:24) Home Medications: Home Meds Medication Instructions Recorded Confirmed Losartan/Hydrochlorothiazide 1 tab PO DAILY 05/29/17 10/30/17 [Hyzaar 100-12.5 Tablet] Review of Systems - Review of Systems Constitutional: Normal Eyes: Normal ENT: Normal Respiratory: Normal Cardiovascular: Normal Gastrointestinal: Normal Genitourinary Male: Normal Musculoskeletal: Neck Pain Skin: Normal Neurological: Normal, Headache (left side occipital and neck) Endocrine: Normal Hemo/Lymphatic: Normal Psychiatric: Normal Physical Exam Vital Signs Reviewed: Yes Vital Signs Temp Pulse Resp BP Pulse Ox 10/30/17 23:20 75 18 128/89 100 10/30/17 21:20 98.1 F 66 18 128/77 95 Temperature: Afebrile Blood Pressure: Normal Pulse: Regular Respiratory Rate: Normal Appearance: Positive for: Non-Toxic, Comfortable Pain Distress: Moderate Mental Status: Positive for: Alert and Oriented X 3 - Systems Exam Head: Present: Atraumatic, Normocephalic, Tenderness (left occipital ) Pupils: Present: PERRL Extroacular Muscles: Present: EOMI Conjunctiva: Present: Normal Mouth: Present: Moist Mucous Membranes Neck: Present: Normal Range of Motion. No: Meningeal Signs, MIDLINE TENDERNESS , Paraspinal Tenderness, JVD, Lymphadenopathy, Bruit, Trachea Midline, Other Respiratory/Chest: Present: Clear to Auscultation, Good Air Exchange. No: Respiratory Distress, Accessory Muscle Use Cardiovascular: Present: Regular Rate and Rhythm, Normal S1, S2. No: Murmurs Abdomen: Present: Normal Bowel Sounds. No: Tenderness, Distention, Peritoneal Signs Back: Present: Normal Inspection. No: CVA Tenderness, Midline Tenderness, Paraspinal Tenderness, Pain with Leg Raise, Decubitus Ulcer, Other Upper Extremity: Present: Normal Inspection, Normal ROM, NORMAL PULSES, Tenderness (left upper trapezius and levator scap), Neurovascularly Intact, Norm 2-Pt Discrimination. No: Cyanosis, Edema Lower Extremity: Present: Normal Inspection. No: Edema Neurological: Present: GCS=15, CN II-XII Intact, Speech Normal Skin: Present: Warm, Dry, Normal Color. No: Rashes Psychiatric: Present: Alert, Oriented x 3, Normal Insight, Normal Concentration Medical Decision Making ED Course and Treatment: 10/30/17 22:13 Impression Pt is a 52 yo male who presents to the ER for left side head and neck pain for the past [address] Toradol 60 mg IM Assess and dispo 10/30/17 23:52 Progress Note EXAM: CT Head Without Intravenous Contrast CLINICAL HISTORY: 52 years old, male; Pain; Headache; Headache not specified; Patient HX: Headache x 4 days; Additional info: AMS TECHNIQUE: Axial computed tomography images of the head/brain without intravenous contrast. All CT scans at this facility use one or more dose reduction techniques, viz.: automated exposure control; ma/kV adjustment per patient size (including targeted exams where dose is matched to indication; i.e. head); or iterative reconstruction technique. Coronal and sagittal reformatted images were created and reviewed. COMPARISON: No relevant prior studies available. FINDINGS: Brain: Minimal atrophy. No intracranial hemorrhage. No mass. No definite edema. Ventricles: No hydrocephalus. Bones/joints: Few small lucent calvarial lesions, nonspecific. Soft tissues: Unremarkable. Sinuses: Scattered minimal mucosal thickening. Mastoid air cells: No mastoid effusion. Orbits: Unremarkable as visualized. IMPRESSION: 1. No definite acute intracranial abnormality. 2. Incidental/non-acute findings are described above Discussed findings with patient Dispo home with naproxen and cyclobenzaprine Advised to follow up with PMD 10/31/17 01:26 - RAD Interpretation Radiology Orders: 10/30/17 21:51 HEAD W/O CONTRAST [CT] Stat Mammography Supervisor: ED Physician - Medication Orders Current Medication Orders: Discontinued Medications Ketorolac Tromethamine (Toradol) 60 mg IM STAT STA Stop: 10/30/17 21:52 Last Admin: 10/30/17 22:11 Dose: 60 mg MAR Pain Assessment Document 10/30/17 22:11 AD (Rec: 10/30/17 22:12 AD [id number]) Pain Reassessment Is this a pain reassessment? No Presence of Pain Presence of Pain Yes Pain Scale Used Pain Scale Used Numeric Location Pain Location Body Value Stream Manager Description Intensity of Pain at present 8 Pain Behavior Facial Grimacing IM Administration Charges Document 10/30/17 22:11 AD (Rec: 10/30/17 22:12 AD [id number]) Injection Site MAR Injection Site Right Gluteus Nima Charges for Administration # of IM Administrations 1 Disposition/Present on Arrival - Present on Arrival Any Indicators Present on Arrival: Yes History of DVT/PE: No History of Uncontrolled Diabetes: No Urinary Catheter: No History of Decub. Ulcer: No History Surgical Site Infection Following: None - Disposition Have Diagnosis and Disposition been Completed?: Yes Diagnosis: Neck pain on left side, Head pain Disposition: HOME/ ROUTINE Disposition Time: 23:55 Patient Plan: Discharge Condition: STABLE Discharge Instructions (ExitCare): Tension Headache (ED) Additional Instructions: Dear Luis, Please take all your medication as recommended for relief of pain and inflammation. Take the Flexeril to reduce muscle spam but use caution as it can make you very sleepy. If your symptoms worsen in the next 24 hrs, please return to the emergency department. Otherwise, follow up with your Primary doctor in the next week or less All the best in your recovery Prescriptions: Cyclobenzaprine [Cyclobenzaprine HCl] 10 mg PO Q12 #10 tab Ibuprofen [Motrin Tab] 600 mg PO Q6 #20 tab Forms: [employer] ([place]ian)
--- NOTE | 2017-10-30 23:28 | CT ---
EXAM: CT Head Without Intravenous Contrast CLINICAL HISTORY: 52 years old, male; Pain; Headache; Headache not specified; Patient HX: Headache x 4 days; Additional info: AMS TECHNIQUE: Axial computed tomography images of the head/brain without intravenous contrast. All CT scans at this facility use one or more dose reduction techniques, viz.: automated exposure control; ma/kV adjustment per patient size (including targeted exams where dose is matched to indication; i.e. head); or iterative reconstruction technique. Coronal and sagittal reformatted images were created and reviewed. COMPARISON: No relevant prior studies available. FINDINGS: Brain: Minimal atrophy. No intracranial hemorrhage. No mass. No definite edema. Ventricles: No hydrocephalus. Bones/joints: Few small lucent calvarial lesions, nonspecific. Soft tissues: Unremarkable. Sinuses: Scattered minimal mucosal thickening. Mastoid air cells: No mastoid effusion. Orbits: Unremarkable as visualized. IMPRESSION: 1. No definite acute intracranial abnormality. 2. Incidental/non-acute findings are described above.
[2017-10-31 00:51] VITALS: BP 128/89; PULSE 75; O2SAT 100
== END 2017-10-31 00:14 | disposition home or self-care (01) ==
LOC: ED 21:20
DX: R51 Headache (principal); M54.2 Cervicalgia; I10 Essential (primary) hypertension
CPT/HCPCS: 70450; 96372; 99285; J1885

== ENCOUNTER 2018-03-13 08:33 | Emergency (ER) | payer MEDICAID ==
[2018-03-13 08:33] VITALS: BMI 33.7
[2018-03-13] MEDS ORDERED: TDAP Vaccine 0.5 mL Syr IM ONE (09:44)
--- NOTE | 2018-03-13 10:21 | ED PDOC ---
Arrival/HPI - General Chief Complaint: Abnormal Skin Integrity Time Seen by Provider: 03/13/18 09:23 Historian: Patient - History of Present Illness Narrative History of Present Illness (Text): 03/13/18 10:16 53 year old male presents to the Emergency department complaining of an AstroTurf burn resulting in large abrasion to left lower extremity that occurred four days ago. Patient was playing softball when he slid into a base. Patient also complains of associated left ankle swelling. Patient denies any fever, chills, chest pain, shortness of breath, nausea, vomiting, diarrhea, urinary symptoms, back pain, neck pain, headache, dizziness, or any other complaints. Time/Duration: < week (4 days ago) Symptom Onset: Sudden Symptom Course: Unchanged Activities at Onset: Significant (sliding into a base while playing softball) Context: Exertion Past Medical History - Provider Review Nursing Documentation Reviewed: Yes - Infectious Disease Hx of Infectious Diseases: None - Cardiac Hx Cardiac Disorders: Yes Hx Hypertension: Yes Other/Comment: Cardiomegaly - Pulmonary Hx Respiratory Disorders: No - Neurological Hx Neurological Disorder: No - HEENT Hx HEENT Disorder: No - Renal Hx Renal Disorder: No - Endocrine/Metabolic Hx Endocrine Disorders: No - Hematological/Oncological Hx Blood Disorders: No - Integumentary Hx Dermatological Disorder: No - Musculoskeletal/Rheumatological Hx Musculoskeletal Disorders: No - Gastrointestinal Hx Gastrointestinal Disorders: No - Genitourinary/Gynecological Hx Genitourinary Disorders: Yes Hx Prostate Problems: Yes (BPH) - Psychiatric Hx Psychophysiologic Disorder: No Hx Substance Use: No Family/Social History - Physician Review Nursing Documentation Reviewed: Yes Family/Social History: Unknown Family HX Smoking Status: Never Smoked Hx Alcohol Use: No Hx Substance Use: No Allergies/Home Meds Allergies/Adverse Reactions: Allergies No Known Allergies Allergy (Verified 05/29/17 19:24) Home Medications: Home Meds Medication Instructions Recorded Confirmed Losartan/Hydrochlorothiazide 1 tab PO DAILY 05/29/17 03/13/18 [Hyzaar 100-12.5 Tablet] Review of Systems - Review of Systems Constitutional: Normal Eyes: Normal ENT: Normal Respiratory: Normal Cardiovascular: Normal Gastrointestinal: Normal Genitourinary Male: Normal Musculoskeletal: Normal Skin: Other (abrasion to left lower extremity) Neurological: Normal Endocrine: Normal Hemo/Lymphatic: Normal Psychiatric: Normal Physical Exam Vital Signs Reviewed: Yes Vital Signs Temp Pulse Resp BP Pulse Ox 03/13/18 09:28 97.9 F 71 16 130/93 H 98 Temperature: Afebrile Blood Pressure: Hypertensive Pulse: Regular Respiratory Rate: Normal Appearance: Positive for: Well-Appearing, Non-Toxic, Comfortable Pain Distress: None Mental Status: Positive for: Alert and Oriented X 3 - Systems Exam Head: Present: Atraumatic, Normocephalic Pupils: Present: PERRL Extroacular Muscles: Present: EOMI Conjunctiva: Present: Normal Mouth: Present: Moist Mucous Membranes Neck: Present: Normal Range of Motion Respiratory/Chest: Present: Clear to Auscultation, Good Air Exchange. No: Respiratory Distress, Accessory Muscle Use Cardiovascular: Present: Regular Rate and Rhythm, Normal S1, S2. No: Murmurs Abdomen: No: Tenderness, Distention, Peritoneal Signs Back: Present: Normal Inspection Upper Extremity: Present: Normal Inspection. No: Cyanosis, Edema Lower Extremity: Present: Other (12cm x 6cm abrasion to lateral left lower extremity with surrounding erythema and swelling. Left lower extremity is warmer than the right. No bony tenderness, crepitus, or fluctuance.) Neurological: Present: GCS=15, CN II-XII Intact, Speech Normal Skin: Present: Warm, Dry, Normal Color. No: Rashes Psychiatric: Present: Alert, Oriented x 3, Normal Insight, Normal Concentration Medical Decision Making ED Course and Treatment: 03/13/18 10:26 You were treated in the ED today for left lower extremity abrasion otherwise without any nausea/vomiting/headache/dizziness/difficulty breathing/chest pain/ abdomen pain/numbness/tingling/loss of limb function/pain with urination/recent travel/prior blood clots/cancer. You were otherwise breathing easily, smiling and talking easily, good strength/sensation, walking easily, clear lungs, no abdomen tenderness, left lower leg area of moderate superficial abrasion with scabbing and mild surrounding redness with overall mild swelling/increased size of the left lower leg vs the right but no bony tenderness and otherwise warm/ sensation/good distal pedal pulse positive, fever temp 97.9, stable heart rate 71, stable breathing rate 16, excellent oxygen level 98% room air, elevated blood pressure 130/93 which we recommend repeat in 2-3 days primary care office to determine further treatment, keflex, bacitracin, tetanus update, observation , done in the ED with improvement, had a long discussion regarding xray and ultrasound evaluation of the left lower leg but you wanted to hold off at this time, counselled to do left lower leg elevation, monitor symptoms and thus discharged home. 1. Recommend motrin as directed for pain. 2. Recommend keflex and bacitracin ointment as directed for infection control. 3. Recommend follow- up primary care 1-2 days to review symptoms, wound check, determine if any further antibiotics change/addition needed and if no improvement ultrasound left lower leg to ensure no deep vein clot. 4. If any worsening pain, fever, chills, nausea, vomiting, difficulty breathing, numbness, loss of limb function , pain with urination or any medical condition then return to the Emergency department. 03/13/18 10:46 03/13/18 11:00 Reassessment Condition: Re-examined, Improved - Medication Orders Current Medication Orders: Discontinued Medications Cephalexin Monohydrate (Keflex) 500 mg PO STAT STA PRN Reason: Protocol Stop: 03/13/18 09:46 Last Admin: 03/13/18 10:03 Dose: 500 mg Tetanus/Reduced Diphtheria/Acell Pertussis (Boostrix Vaccine Inj) 0.5 ml IM .ONCE ONE Stop: 03/13/18 09:45 Last Admin: 03/13/18 10:02 Dose: 0.5 ml Immunization Registry Document 03/13/18 10:02 EQ (Rec: 03/13/18 10:02 EQ [id number]) Immunization Registry Consent Date 10/30/17 - Scribe Statement The provider has reviewed the documentation as recorded by the Mckenzie Perez Provider Scribe Attestation: All medical record entries made by the Scribhernandez were at my direction and personally dictated by me. I have reviewed the chart and agree that the record accurately reflects my personal performance of the history, physical exam, medical decision making, and the department course for this patient. I have also personally directed, reviewed, and agree with the discharge instructions and disposition. Disposition/Present on Arrival - Present on Arrival Any Indicators Present on Arrival: No History of DVT/PE: No History of Uncontrolled Diabetes: No Urinary Catheter: No History of Decub. Ulcer: No History Surgical Site Infection Following: None - Disposition Have Diagnosis and Disposition been Completed?: Yes Diagnosis: Abrasion hip/leg, Cellulitis Disposition: HOME/ ROUTINE Disposition Time: 11:06 Patient Plan: Discharge Condition: IMPROVED Discharge Instructions (ExitCare): Cellulitis (ED) Additional Instructions: You were treated in the ED today for left lower extremity abrasion otherwise without any nausea/vomiting/headache/dizziness/difficulty breathing/chest pain/ abdomen pain/numbness/tingling/loss of limb function/pain with urination/recent travel/prior blood clots/cancer. You were otherwise breathing easily, smiling and talking easily, good strength/sensation, walking easily, clear lungs, no abdomen tenderness, left lower leg area of moderate superficial abrasion with scabbing and mild surrounding redness with overall mild swelling/increased size of the left lower leg vs the right but no bony tenderness or any fluctuance/ crepitus of the extremity and otherwise warm/sensation/good distal pedal pulse positive, fever temp 97.9, stable heart rate 71, stable breathing rate 16, excellent oxygen level 98% room air, elevated blood pressure 130/93 which we recommend repeat in 2-3 days primary care office to determine further treatment , keflex, bacitracin, tetanus update, observation, done in the ED with improvement, had a long discussion regarding xray and ultrasound evaluation of the left lower leg but you wanted to hold off at this time, counselled to do left lower leg elevation, monitor symptoms and thus discharged home. 1. Recommend motrin as directed for pain. 2. Recommend keflex and bacitracin ointment as directed for infection control. 3. Recommend follow-up primary care 1-2 days to review symptoms, wound check, determine if any further antibiotics change/addition needed and if no improvement ultrasound left lower leg to ensure no deep vein clot. 4. If any worsening pain, fever, chills, nausea, vomiting, difficulty breathing, numbness, loss of limb function, pain with urination or any medical condition then return to the Emergency department. Prescriptions: Cephalexin [cephalexin] 500 mg PO Q6 10 Days #40 cap Ibuprofen [Motrin Tab] 800 mg PO Q8 PRN 10 Days #30 tab PRN Reason: Pain, Mild (1-3) Forms: [employer] (Citizen Of [place])
[2018-03-13 11:17] VITALS: BP 128/75; PULSE 68; RESP 18; O2SAT 99
[2018-03-13 11:43] VITALS: TEMP 98
== END 2018-03-13 11:30 | disposition home or self-care (01) ==
LOC: ED 08:33
DX: S80.812A Abrasion, left lower leg, initial encounter (principal); S70.212A Abrasion, left hip, initial encounter; X50.0XXA Overexertion from strenuous movement or load, initial encounter; Y93.64 Activity, baseball; Y92.39 Other specified sports and athletic area as the place of occurrence of the external cause; L03.116 Cellulitis of left lower limb; Z23 Encounter for immunization